=== PATIENT | male | born 1960 | race Caucasian/White ===

== ENCOUNTER 2016-11-20 20:10 | Inpatient (IN) | payer SELFPAY ==
--- NOTE | ~2016-11-20 | CN ---
Consultation Report [facility] [address] [place]. [address] NAME: FLORENCIO ONOFRE : 58 STATUS : ADM IN PAT#: [id number] AGE: 56 ADM/REG DATE : 11/20/16 MR#: [id number] REPORT SERV DATE: 11/30/16 DICTATED BY: TEAGAN GIRALDO DATE: 11/30/16 REPORT STATUS : Draft TRANSCRIBED BY: MODL DATE: 11/30/16 CONSULT NOTE DATE OF CONSULTATION: 11/30/2016 REASON FOR THE CONSULT: Abdominal pain. CONSULTING SERVICE: General Surgery. HISTORY OF PRESENT ILLNESS: This is a 56-year-old male who was admitted on 11/20/2016, with an NSTEMI, who is now postop day 4 after revascularization with a redo three-vessel CABG with reverse saphenous vein graft. The patient also has significant risk factors including COPD, previously uncontrolled type 2 diabetes mellitus this required high amounts of insulin here in the hospital, which was previously weaned off an insulin drip, dyslipidemia, and tobacco abuse prior to this admission. The patient was doing fairly well postop. He initially complained of some abdominal pain two days ago, which was relieved with a large bowel movement after he was administered a suppository and other bowel regimen medications. He denies that this was bloody. He states that he had a small hard bowel movement yesterday again, no blood. He says he woke up coughing this morning at 2 a.m. and had sudden onset of severe left-sided abdominal pain. He is also complaining of difficulty with having deep breaths secondary to this abdominal pain as well as complaining of left flank pain and some CVA tenderness. He states he is urinating well, and this is somewhat dark but he has not noticed any blood, and he denies any nausea. On entry into the room, the patient was eating a meal although he says that he does not have much of an appetite. PAST MEDICAL HISTORY: 1. Coronary artery disease status post initial bypass grafting with a COOLEY graft in 2005, as well as a prior drug-eluting stent, now postop day 4 from a redo three-vessel CABG with reverse saphenous vein grafting. 2. Hypertension. 3. Insulin-dependent diabetes mellitus. 4. Dyslipidemia. 5. GERD. 6. Tobacco abuse. 7. Obstructive sleep apnea noncompliant with CPAP, with COPD like factors. FAMILY HISTORY: 1. Coronary artery disease. 2. Psoriasis. PAST SURGICAL HISTORY: 1. Prior PCI with possible bare-metal stenting in 2005, probably previous coronary arteriograms at this admission as well as 2010, 2013. 2. Previous drug-eluting stent in 2013. Consultation Report [facility] [id number] [place]. [address] NAME: FLORENCIO ONOFRE : 58 STATUS : ADM IN [facility]#: [id number] AGE: 56 ADM/REG DATE : 11/20/16 MR#: [id number] REPORT SERV DATE: 11/30/16 DICTATED BY: TEAGAN GIRALDO SHIRA DATE: 11/30/16 REPORT STATUS : Draft TRANSCRIBED BY: KODI DATE: 11/30/16 3. Prior coronary artery bypass grafting in 2006, with 4 grafts including a COOLEY. 4. Postop day 4 now from redo coronary artery bypass grafting with 3 grafts. 5. Rotator cuff repair of the right shoulder in 1999. 6. Open cholecystectomy 1987. MEDICATIONS: Here in the hospital currently include: 1. MiraLAX. 2. Colace. 3. Dulera. 4. Nicotine patch. 5. NovoLog. 6. Levemir. 7. Lopressor. 8. Protonix. 9. Glucagon. 10.Glucose tablets p.r.n. 11.Dulcolax. 12.Phosphorus and potassium replacements and magnesium replacements. 13.Ambien. 14.Plavix. 15.Orazinc. 16.Halfprin. 17.Neurontin. 18.DuoNeb. 19.Roxicodone. 20.Lipitor. 21.Proventil. 22.Vitamin C. 23.Milk of magnesia. 24.Senokot. 25.Catapres p.r.n. 26.Mylanta p.r.n. 27.Zofran p.r.n. 28.Toradol p.o. 29.Cordarone. ALLERGIES: NO KNOWN DRUG ALLERGIES. SOCIAL HISTORY: The patient is and lives with his . He has heretofore smoked 1 pack a day for over 30 years. He has a previous history of occasionally smoking marijuana although denies any recent marijuana use. 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 FAMILY HISTORY: Significant for coronary artery disease and diabetes in his mother as well as one brother with coronary artery disease. Consultation Report [facility] [id number] [place]. [address] NAME: FLORENCIO ONOFRE : 58 STATUS : ADM IN PAT#: [id number] AGE: 56 ADM/REG DATE : 11/20/16 MR#: [id number] REPORT SERV DATE: 11/30/16 DICTATED BY: TEAGAN GIRALDO DATE: 11/30/16 REPORT STATUS : Draft TRANSCRIBED BY: KODI DATE: 11/30/16 PHYSICAL EXAMINATION: VITAL SIGNS: Temperature 97.0, heart rate is currently 92. The patient was mildly tachycardic in the low 100s approximately 36 hours ago, but this has since resolved. Blood pressure 135/81, saturating 94% on 3 L nasal cannula. This is stable for the past several days. GENERAL: No acute distress. Alert and orient x3. HEENT: Normocephalic, atraumatic. Pupils equal, round, reactive to light. Extraocular movements and cranial nerves 2 through 12 are grossly intact. His nares are patent. His mucous membranes are moist. There are no obvious obstruction of his oropharynx. NECK: Supple. Trachea is midline. CARDIOVASCULAR: Regular rate and rhythm. No murmurs, rubs, or gallops. LUNGS: In general clear bilaterally although somewhat decreased at the bases. He does have on his chest a central midline sternotomy scar, which is healing well. ABDOMEN: Soft. There is very mild distention. He is tender palpation on the left with a greater in the left upper quadrant versus the left lower quadrant. He has had focal rebound on this left side. It is worse on the left upper quadrant. He does not have generalized peritonitis and I do not appreciate any masses pulsatile or otherwise. There does appear to be a scar from prior cholecystectomy. LABS: White blood cells today 17.8, but this is trending down from previous values of 20.1 and 26.1, hemoglobin 12.6, hematocrit 37.4, platelets of 221, and 64.47% neutrophils. Sodium 136, potassium 3.9, chloride 95, CO2 of 30, BUN 28, creatinine 1.19, glucose is 139, calcium 8.7, magnesium 1.9. IMAGING: An x-ray from this morning shows what slightly increased left lower lobe consolidation versus atelectasis. Otherwise, no obvious abnormalities or changes from prior x-rays. ASSESSMENT AND PLAN: A 56-year-old male with multiple comorbidities including cardiovascular disease, type 2 diabetes mellitus, chronic obstructive pulmonary disease now with acute abdominal pain of unknown etiology. I have made the patient n.p.o., asked him not to drink or eat anything further until the Surgery is able to further review his imaging. Also ordered a stat CT of his abdomen and pelvis, further recommendations will be forthcoming following results of the CT. I have discussed this patient with Dr. Giraldo, who agrees with this plan. DICTATED BY: Melinda Yates MD SE/KODI Teagan Giraldo MD Consultation Report [address] [address] NAME: FLORENCIO ONOFRE : 58 STATUS : ADM IN PAT#: [id number] AGE: 56 ADM/REG DATE : 11/20/16 MR#: [id number] REPORT SERV DATE: 11/30/16 DICTATED BY: TEAGAN GIRALDO SHIRA DATE: 11/30/16 REPORT STATUS : Draft TRANSCRIBED BY: KODI DATE: 11/30/16 / [id number] CC: Saba Cardoza MD James Zellner, M.D.
--- NOTE | ~2016-11-20 | CN ---
Consultation Report [facility] [address] [place]. [address] NAME: FLORENCIO ONOFRE : 58 STATUS : ADM IN [facility]#: [id number] AGE: 56 ADM/REG DATE : 11/20/16 MR#: [id number] REPORT SERV DATE: 12/01/16 DICTATED BY: SAMY CAMPBELL DATE: 12/01/16 REPORT STATUS : Draft TRANSCRIBED BY: MODL DATE: 12/01/16 GI CONSULTATION DATE OF CONSULTATION: 12/01/2016 REASON FOR CONSULTATION: Regarding left lower quadrant pain. HISTORY OF PRESENT ILLNESS: This is a 56-year-old man who was admitted on 11/20/2016 with a efa-DM-[place]. He is now postoperative from redo 3-vessel CABG. He has developed left lower quadrant pain over the past three days. CT scan did show thickening of descending and sigmoid colon. He has had no diarrhea, melena, or hematochezia. His pain is persistent and mild to moderate in nature. He has had no nausea or vomiting. No history of colonoscopy. He is on aspirin and Plavix after his recent operation. MEDICAL HISTORY: Remarkable for CAD, status post CABG in 2005, as well as recently in 2017; hypertension; diabetes; dyslipidemia; GERD; obstructive sleep apnea; psoriasis; previous coronary stenting although none within the past one year; rotator cuff repair; and open cholecystectomy. ALLERGIES: NONE. MEDICATIONS AT HOME: Aspirin, Plavix, Lopid, Nitrostat, simvastatin, cholesterol and diabetes medicines, blood pressure medicine, and hydrochlorothiazide. FAMILY HISTORY: Remarkable for colon polyps in multiple first-degree relatives. SOCIAL HISTORY: Does not use alcohol or tobacco significantly. REVIEW OF SYSTEMS: A complete review of systems was obtained and negative except that noted in the history of present illness. PHYSICAL EXAMINATION: VITAL SIGNS: He is afebrile. Temperature is 97.3, pulse 78, respirations 16, blood pressure 115/67. HEENT: Sclerae anicteric. Pharynx is pink without exudate. NECK: Supple without lymphadenopathy. LUNGS: Clear to auscultation bilaterally. HEART: Regular rate and rhythm. S1, S2 are heard without rubs or gallops. ABDOMEN: Diminished bowel sounds. Belly is soft and mildly distended. He is tender in the left lower quadrant without rebound or guarding. Overall, benign abdomen. EXTREMITIES: No pedal edema or rash. NEUROLOGIC: Alert and oriented without focal deficit. Muscle exam is nontender. Consultation Report [facility] [address] [place]. [address] NAME: FLORENCIO ONOFRE : 58 STATUS : ADM IN PAT#: [id number] AGE: 56 ADM/REG DATE : 11/20/16 MR#: [id number] REPORT SERV DATE: 12/01/16 DICTATED BY: SAMY CAMPBELL DATE: 12/01/16 REPORT STATUS : Draft TRANSCRIBED BY: MODL DATE: 12/01/16 DATA: White blood cell count is 16.0 from 26.1, hematocrit is 34.3, and platelets 245. BUN is [address] scan shows thickening of descending and sigmoid colon with induration of the wall. IMPRESSION: 1. Left lower quadrant pain, suspect ischemic colitis. 2. Coronary artery disease, status post recent CABG as above. RECOMMENDATIONS: 1. Continue intravenous antibiotics. 2. Slow preparation for colonoscopy to follow in a couple of days. 3. Monitor CBC. 4. Would like to hold Plavix if okay with surgery. We will touch base. CC/KODI Samy Campbell M.D. / [id number] CC: Saba Cardoza MD
--- NOTE | ~2016-11-20 | EGD ---
EGD REPORT [facility] [address] [address] NAME: PARVIZ RAO : 58 STATUS : ADM IN PAT#: [id number] AGE: 56 ADM/REG DATE : 11/20/16 MR#: [id number] REPORT SERV DATE: 12/03/16 DICTATED BY: MICHAEL AGUILAR DATE: 12/03/16 REPORT STATUS : Draft [facility]ANSCRIBED BY: [facility] DATE: 12/03/16 Endoscopy Center Patient Name: Parviz Rao Date of : 1960 Attending MD: MICHAEL AGUILAR MD Procedure Date No Time: 12/03/2016 Procedure: Colonoscopy Indications: Abdominal pain in the left lower quadrant, Abnormal CT of the GI tract Medicines: Monitored Anesthesia Care Complications: No immediate complications. Estimated blood loss: Minimal. Procedure: Pre-Anesthesia Assessment: - ASA Grade Assessment: III - A patient with severe systemic disease. After I obtained informed consent, the scope was passed under direct vision. Throughout the procedure, the patient's blood pressure, pulse, and oxygen saturations were monitored continuously. The CF [id number] was introduced through the anus and advanced to the cecum, identified by appendiceal orifice and ileocecal valve. The colonoscopy was performed without difficulty. The patient tolerated the procedure well. The quality of the bowel preparation was fair. Findings: The perianal and digital rectal examinations were normal. Pertinent negatives include no palpable rectal lesions. A sessile, non-bleeding polyp was found in the ascending colon. The polyp was 5 mm in size. Polypectomy was not attempted due to the patient taking anticoagulation medication. Discontinuous linear areas of nonbleeding ulcerated mucosa were present in the ascending colon. Biopsies were taken with a cold forceps for histology. Estimated blood loss was minimal. Diffuse mild inflammation characterized by congestion (edema) and erythema was found in the sigmoid colon only. Biopsies were taken with a cold forceps for histology. Estimated blood loss was minimal. Non-bleeding internal hemorrhoids were found during retroflexion and were medium-sized. The exam was otherwise without abnormality. Impression: - Single polyp in ascending colon - not resected due to ASA and Plavix use - Mucosal ulceration. Biopsied. - Diffuse mild inflammation was found in the sigmoid EGD REPORT [address] [place]. [address] NAME: PARVIZ RAO : 58 STATUS : ADM IN [facility]#: [id number] AGE: 56 ADM/REG DATE : 11/20/16 MR#: [id number] REPORT SERV DATE: 12/03/16 DICTATED BY: MICHAEL AGUILAR DATE: 12/03/16 REPORT STATUS : Draft TRANSCRIBED BY: [facility] DATE: 12/03/16 colon. Biopsied. - Non-bleeding internal hemorrhoids. - The examination was otherwise normal. Recommendation: - Return patient to hospital [facility] for ongoing care. - Full liquid diet. - Await pathology results. - Use broad spectrum antibiotics for 10 days. - Repeat colonoscopy in 6 months for retreatment/remove polyps when Plavix can be held for 7-10 days. Procedure Code(s): --- Professional --- 73770, Colonoscopy, flexible, proximal to splenic flexure; with biopsy, single or multiple Diagnosis Code(s): --- Professional --- K63.3, Ulcer of intestine K52.9, Noninfective gastroenteritis and colitis, unspecified K64.8, Other hemorrhoids R10.32, Left lower quadrant pain R93.3, Abnormal findings on diagnostic imaging of other parts of digestive tract CPT copyright 2013 [employer]. All rights reserved. The codes documented in this report are preliminary and upon information coder review may be revised to meet current compliance requirements. Michael Aguilar MD MICHAEL AGUILAR MD 12/03/2016 11:18 AM This report has been signed electronically. Number of Addenda: 0 Note Initiated On: 12/03/2016 10:24 AM Scope Withdrawal Time 0 hours 9 minutes 16 seconds [address] [place] [id number]
--- NOTE | ~2016-11-20 | CN ---
Consultation Report [facility] [address] [place]. [address] NAME: FLORENCIO RAO : 58 STATUS : ADM IN [facility]#: [id number] AGE: 56 ADM/REG DATE : 11/20/16 MR#: [id number] REPORT SERV DATE: 11/29/16 DICTATED BY: ARNULFO MARCANO DATE: 11/29/16 REPORT STATUS : Draft TRANSCRIBED BY: MODL DATE: 11/29/16 DATE OF CONSULTATION: 11/29/2016 REASON FOR CONSULTATION: Need to help with bronchodilator therapy along with COPD. CHIEF COMPLAINT: The patient has no pulmonary complaints at this moment in time. HISTORY OF PRESENT ILLNESS: Mr. Rao is a 56-year-old gentleman, who is admitted for a non ST-elevation HI in almost two weeks ago and is now status post CABG. The patient has a chronic cough and sputum production. He is a known tobacco user and has had a hard time coming off cigarettes. Currently, he is on the patch and states that this is actually working well for him. The patient was accompanied with his family. We reviewed his CT scan, which shows mostly chronic bronchitis and not necessarily any emphysema. The patient is bringing up sputum. He is using a flutter valve and this seems to be helping him. He does not feel that the incentive spirometer is helping him much, however. The patient currently has no pneumonia-like symptoms. Prior to his hospitalization, the patient was not on any longstanding inhalers. PAST MEDICAL HISTORY: Coronary artery disease status post bypass, hypertension, diabetes, tobacco use, obstructive sleep apnea, psoriasis, hyperlipidemia. CURRENT MEDICATIONS: Reviewed. The patient is on multitude of cardiac medications. Pulmonary medications include DuoNeb, Dulera. ALLERGIES: NO KNOWN DRUG ALLERGIES. FAMILY HISTORY: Other family members with underlying coronary artery disease. SOCIAL HISTORY: The patient is currently . He has multiple brothers and sisters at the bedside. The patient has been a lifelong smoker. No alcohol or illicit drug use. He works as a sculptor with woodworking as a career and protects his airways with a fan to make sure he does not have any inhalation of wood dust. REVIEW OF SYSTEMS: All pertinent review of systems were reviewed and is otherwise negative. PHYSICAL EXAMINATION: VITAL SIGNS: The patient is currently afebrile, heart rate around 90-110, respiratory rate 16-18, current oxygen saturation 93% on 4 L nasal cannula, and blood pressure currently around 100 systolic to 120. GENERAL: The patient is alert and oriented, in no acute distress. HEENT: No JVD. No lymphadenopathy. PULMONARY: No wheezing. Distant breath sounds bilaterally. CARDIAC: Distant heart sounds, but otherwise some tachycardia, but no murmurs. ABDOMEN: Soft, nontender, nondistended. Consultation Report [address] [place]. [address] NAME: FLORENCIO RAO : 58 STATUS : ADM IN PAT#: [id number] AGE: 56 ADM/REG DATE : 11/20/16 MR#: [id number] REPORT SERV DATE: 11/29/16 DICTATED BY: ARNULFO MARCANO DATE: 11/29/16 REPORT STATUS : Draft TRANSCRIBED BY: KODI DATE: 11/29/16 EXTREMITY: No lower extremity edema, peripheral pulses noted, no focal neurological deficits. LABORATORY EXAMINATION: Leukocytosis is noted. Acute kidney dysfunction today. IMAGING DATA: CT scan was noted, which shows no emphysema, but does show bronchial wall thickening. ASSESSMENT AND PLAN: Mr. Rao is a 56-year-old gentleman, which is status post a redo sternotomy, who comes in with a history of smoking and probable chronic bronchitis-chronic obstructive pulmonary disease. I have no pulmonary function test on file and he does not follow up with pulmonary as of yet. Blood gases did not show acute hypercapnia; however, the patient was on mechanical ventilation at the time. RECOMMENDATIONS: 1. Immediate cessation of tobacco products. This has been explained to the patient and family at the bedside. We talked about strategies for payment of nicotine patches as this seems to be working for the patient. This will be the greatest improvement that I can offer him in his tobacco cessation at this moment in time. 2. Bronchodilator therapy with Dulera and DuoNeb therapy. Continue flutter valve therapy. 3. Follow up with Pulmonary as an outpatient. Thank you very much for this consultation. We will continue to follow along with you. Please call us with any further questions or concerns. HFQ/MODL Arnulfo Marcano MD / [id number] CC: Saba Cardoza MD
--- NOTE | ~2016-11-20 | OP ---
Record Of [facility] [address] [place]. [address] NAME: FLORENCIO ONOFRE : 58 STATUS : DIS IN PAT#: [id number] AGE: 56 ADM/REG DATE : 11/20/16 MR#: [id number] REPORT SERV DATE: 12/25/16 DICTATED BY: CARROLL MILLER DATE: 12/25/16 REPORT STATUS : Draft TRANSCRIBED BY: MODL DATE: 12/25/16 DATE OF PROCEDURE: 11/22/2016 PREOPERATIVE DIAGNOSES: 1. Recurrent coronary disease with unstable angina and baw-IT-mrtmddjdk myocardial infarction. 2. Previous coronary bypass grafting with PCI and stenting of the coronaries. 3. Type 2 ugc-qfrdugs-gdricddil diabetes mellitus. 4. Hypertension. 5. Hyperlipidemia. 6. Psoriasis. 7. Obesity. 8. Tobacco abuse. POSTOPERATIVE DIAGNOSES: 1. Recurrent coronary disease with unstable angina and lhp-QE-gwzejxrwy myocardial infarction. 2. Previous coronary bypass grafting with PCI and stenting of the coronaries. 3. Type 2 ulk-aoanpxu-vjcweozmz diabetes mellitus. 4. Hypertension. 5. Hyperlipidemia. 6. Psoriasis. 7. Obesity. 8. Tobacco abuse. PROCEDURE PERFORMED: 1. Urgent redo coronary bypass grafting x3, reverse saphenous vein graft placed to the first diagonal, reverse saphenous vein graft placed to the first obtuse marginal, reverse saphenous vein graft placed to the posterolateral branch vessel. 2. Preservation of old SEAMUS graft to the LAD. 3. Endoscopic vein harvest, saphenous vein from the right leg. 4. Transesophageal echocardiography. SURGEON: Dr. Carroll Miller. KEY PUNCH TEACHER: Denver Sanchez, Loulou Pritchett, and Marilee Downs. ANESTHESIA: General with Dr. Harmon. MATERIAL LIAISON: Dr. Medina. INDICATIONS: This is a 56-year-old gentleman, who underwent previous bypass surgery by us in 2010. This was a prior myocardial infarction. He was admitted to the hospital with recurrent chest pain and ruled in for myocardial infarction. It was felt to be non-STEMI. He then underwent a cardiac catheterization, showing severe [place] 3-vessel coronary disease. Vein grafts placed at previous surgery were either occluded or stenotic. His SEAMUS Record Of [facility] [address] [place]. [address] NAME: FLORENCIO ONOFRENE : 58 STATUS : DIS IN PAT#: [id number] AGE: 56 ADM/REG DATE : 11/20/16 MR#: [id number] REPORT SERV DATE: 12/25/16 DICTATED BY: CARROLL MILLER DATE: 12/25/16 REPORT STATUS : Draft TRANSCRIBED BY: KODI DATE: 12/25/16 graft to the LAD was widely patent. Unfortunately the patient is diabetic and continued to smoke throughout this time. Ventricular function was mildly reduced with an ejection fraction of 45%. We were asked to see the patient for possible urgent revascularization. Vein mapping of the leg along with CT scan performed demonstrating no contraindication to surgery. After discussion of the operations, indication, and risks, they wished to proceed. Preoperative STS predicted mortality was 2% and morbidity mortality 17.7%. This was shared with the patient. In addition, in-depth discussion with the patient of being medically compliant with giving up cigarettes was also carried out which the patient did agree to. FINDINGS AT OPERATION: 1. Cross-clamp time of 64 minutes. Total pump time 90 minutes. 2. The first diagonal vessel was 1.5 mm and mildly diseased. A 4 mm RSVG was anastomosed to it with fair runoff. This was a small target. 3. The first obtuse marginal was 1.5 mm and moderately diseased. A 4 mm RSVG was anastomosed to it with fair runoff. This was also a small target. 4. The posterolateral branch vessel was 1.75 mm and moderately diseased. A 4 mm RSVG was anastomosed to it with good runoff. 5. We preserved the old SEAMUS graft to the LAD and had excellent Doppler signal both during and after the operation. 6. The vein quality was good and all grafts had good Doppler signal at the end of the case. 7. SUNDAR demonstrated good ventricular function. There was mild or moderate mitral insufficiency. We discussed these findings with Dr. Medina during the procedure. It was decided that this most likely represented ischemic mitral insufficiency which should improve with revascularization of the target areas. PATHOLOGIC SPECIMENS: None. DESCRIPTION OF PROCEDURE: The patient was brought to the operating suite where general anesthesia was induced. Airway secured with an endotracheal tube. Lines secured by Anesthesia and a Gill catheter was placed. The patient's chest, abdomen, groin, and legs were prepped with Hibiclens and ChloraPrep and draped with Ioban and sterile sheets. SUNDAR probe was placed by Anesthesia and examination of the area demonstrated the findings as discussed above. We did discuss the findings on the echo of clzp-ht-iuphdunf mitral insufficiency with Dr. Medina. Because this was felt to be a type 3B defect with relation to his ischemia and mitral insufficiency, it was not severe. It was elected to treat this using bypass technique. The saphenous vein was harvested from the right leg using endoscopic technique. Briefly, the vein was cut directly down upon through a 2 cm incision and placed to the medial aspect of the right knee. Then, using VasoView trocars, the vessel was dissected from the surrounding subcutaneous tissue and fat. Side branches were identified, ligated, and divided with cautery. Once adequate length of the vein had been dissected, an incision was made up in the groin and in the lower leg where the vein was ligated, divided, and brought through the knee incision. The vein quality was good. The leg wounds were made hemostatic and closed in layers of absorbable suture. Skin closed in subcuticular fashion. Record Of Operation [facility] [address] [facility]. [address] NAME: FLORENCIO ONOFRE : 58 STATUS : DIS IN PAT#: [id number] AGE: 56 ADM/REG DATE : 11/20/16 MR#: [id number] REPORT SERV DATE: 12/25/16 DICTATED BY: CARROLL MILLER DATE: 12/25/16 REPORT STATUS : Draft TRANSCRIBED BY: KODI DATE: 12/25/16 Then, the sternal incision made through the old sternal scar. This carried through the subcutaneous tissue and the sternal wires were removed. Then, the sternum was opened carefully using the oscillating saw. We then spent some time clearing off the back table of the sternum away from epicardial and mediastinal adhesions. Retractor could eventually be placed. We then focused our dissection on the right side of the heart and ascending aorta concentrating on areas for cannulation. Once the right atrium and ascending aorta were cleared, the patient was anticoagulated with heparin. The previously placed grafts were identified and avoided. Then pursestring sutures were placed in the ascending aorta and right atrium. Cannulation was carried out in a routine manner. Eventually a retrograde cardioplegia cannula was placed in the coronary sinus. When all was in readiness, the patient was placed on the cardiopulmonary bypass. We continued our dissection circumferentially around the heart, freeing it up from adhesions. The SEAMUS was dissected and identified using Doppler. Thus the SEAMUS pedicle was then dissected away from adhesions around the lung tissue and the epicardial surface. Once adequate length of the SEAMUS freed up, we were able to jigar out the distal targets on the heart as described in the findings. Then, a heart support was placed. The aorta was crossclamped and an initial dose cold blood cardioplegia solution was given in a combination of antegrade and retrograde fashion, then a retrograde manner following proximal anastomoses. Following the first dose of cardioplegia, the heart was positioned for the posterolateral branch graft. Arteriotomy was made. The vein graft was then anastomosed to it with 7-0 Prolene. The vein graft was measured back to the right side of the ascending aorta where it was divided. We then positioned the heart for the obtuse marginal graft. Another arteriotomy was made and the vein graft was then anastomosed it with 7-0 Prolene. This vein graft was then measured back to the left side of the ascending aorta where it was divided. Next, the proximal ends of the two vein grafts were anastomosed where 4 mm punch aortotomies were in the schulz of the old vein grafts. They were non-diseased on the aorta. The proximal anastomosis was performed with 6-0 Prolene. Another dose of cardioplegia was given and we positioned the heart for the diagonal graft. It should be noted that once the cross-clamp was originally applied, a bulldog clamp was placed on the SEAMUS pedicle. Arteriotomy was made in the first diagonal vessel. The vein graft was then anastomosed to it with 7-0 Prolene. The vein graft was measured back to the left side of the ascending aorta where it was divided and anastomosed to a 4 mm punch aortotomy with 6-0 Prolene. The patient was placed in Trendelenburg and final dose of warm blood cardioplegia was given in a retrograde fashion. Ventricular and atrial pacing wires were placed. A bulldog clamp on the SEAMUS pedicle was removed. Following the last dose of cardioplegia and deairing of the ascending aorta, the aortic cross-clamp was removed. The distal and proximal anastomoses were inspected and made hemostatic. Doppler demonstrated good flow through the grafts. The SEAMUS had excellent flow by Doppler. Ventilations were begun and the heart was paced in AV sequential fashion. When the heart demonstrated good contractility, it was allowed to fill and eject. De-airing was monitored with SUNDAR. When deairing was completed, the ascending aortic vent removed and these pursestring sutures tied and reinforced. Record Of Operation [facility] [address] [place]. [address] NAME: FLORENCIO ONOFRE : 58 STATUS : DIS IN PAT#: [id number] AGE: 56 ADM/REG DATE : 11/20/16 MR#: [id number] REPORT SERV DATE: 12/25/16 DICTATED BY: CARROLL MILLER DATE: 12/25/16 REPORT STATUS : Draft TRANSCRIBED BY: KODI DATE: 12/25/16 The patient was then weaned from cardiopulmonary bypass with inotropic support. The venous cannula was removed and these pursestring sutures tied. SUNDAR examination demonstrated good ventricular function. There was mild mitral valve insufficiency felt to be at the end of the operation. Protamine was then administered by Anesthesia and following a period of hemodynamic stability, the aortic cannula was removed and these pursestring sutures tied and reinforced. The patient continued to do well and chest irrigated copiously with saline. Meticulous hemostasis was obtained. Hemasorb was placed along the cut edge of the sternum. Once hemostasis was assured, the pericardium was draped over the anterior surface of the heart and tacked in position. Doppler demonstrated good flow through the grafts following protamine administration. Then, chest tubes were placed and the sternum reapproximated with 8 sternal wires. The clavipectoral fascia and linea alba closed with #1 StrataFix as was the subcutaneous tissue. The skin was closed in subcuticular fashion. The patient tolerated the procedure well. There were no complications. Sponge and needle counts were correct. DISPOSITION: The patient was left intubated, sedated, and transported to the Intensive Care in stable condition. MARCO A/KODI Carroll Miller M.D. / [id number] CC: Saba Cardoza MD Lisa Gail Carkner, M.D.
--- NOTE | ~2016-11-20 | DS ---
Discharge Summary [facility] [address] [place]. [address] NAME: FLORENCIO ONOFRE : 58 STATUS : DIS IN PAT#: [id number] AGE: 56 ADM/REG DATE : 11/20/16 MR#: [id number] REPORT SERV DATE: 12/13/16 DICTATED BY: DATE: REPORT STATUS : Draft TRANSCRIBED BY: MODL DATE: 12/13/16 Data Collection from hospitalization DISCHARGE DIAGNOSES: 1. Non-ST elevation myocardial infarction. 2. Coronary artery disease, status post redo coronary artery bypass grafting. 3. Hypertension. 4. Hyperlipidemia. 5. Type 2 diabetes mellitus. 6. Tobacco use. 7. Gastroesophageal reflux disease. 8. Obstructive sleep apnea. 9. Psoriasis. CONSULTATIONS: 1. Robin Diaz N.P. 2. Arnulfo Marcano MD. 3. Dimitrios Giraldo MD. 4. Samy Campbell M.D. 5. Ida Cook M.D. PROCEDURES PERFORMED: 1. Colonoscopy on 12/03/2016. 2. Cardiac catheterization on 11/21/2016. 3. Redo coronary artery bypass x3 using saphenous vein from the right leg, harvested endoscopically as graft, transesophageal echocardiogram on 11/26/2016. 4. Vein mapping of the bilateral lower extremities on 11/22/2016. 5. Carotid blood flow study on 11/22/2016. 6. CT scan of the chest without contrast on 11/22/2016. 7. CT scan of the abdomen and pelvis with contrast on 11/30/2016. 8. Mesenteric duplex study on 11/30/2016. 9. Pulmonary function study on 11/22/2016. PATHOLOGY: Ascending colon biopsy - ulcer, negative for malignancy, see comments. Sigmoid colon biopsy - within normal limits. MEDICATIONS: Aspirin 81 mg daily; Lipitor 40 mg at bedtime; Plavix 75 mg every morning; Neurontin 300 mg twice a day; Lopid 600 mg twice a day; Novolin 70/30, 15 units subcutaneously every morning; Novolin 70/30, 10 units subcutaneously every evening; Levaquin 750 mg daily; Lopressor 50 mg twice a day; Flagyl 500 mg every eight hours; Nitrostat 0.4 mg sublingually as needed; Ultram 50 mg every four hours as needed; and Anoro Ellipta one inhalation daily as instructed. He was instructed not to continue isosorbide mononitrate, glimepiride, metformin, simvastatin, hydrochlorothiazide, or lisinopril. CONDITION AT DISCHARGE: Stable. DISPOSITION: The patient was discharged home on a low-cholesterol, low-sodium, 1800-calorie cardiac/diabetic diet with activities as instructed. He would follow up with Robin Diaz Discharge Summary [address] [address] NAME: FLORENCIO ONOFRE : 58 STATUS : DIS IN PAT#: [id number] AGE: 56 ADM/REG DATE : 11/20/16 MR#: [id number] REPORT SERV DATE: 12/13/16 DICTATED BY: DATE: REPORT STATUS : Draft TRANSCRIBED BY: KODI DATE: 12/13/16 as instructed. He would follow up with Dr. Leah Ni as instructed. He would follow up with Dr. Arnulfo Marcano on 02/05/2017. He was to undergo a repeat colonoscopy in 6 to 12 months following discharge when he was stable to stop Plavix for 7 to 10 days. HOSPITAL COURSE: This is a 56-year-old man who has a history of coronary artery disease. He is status post myocardial infarction and stents. He had a coronary artery bypass grafting in 2005 and his most recent percutaneous coronary intervention was in 2013 for a saphenous vein graft to diagonal branch here at [facility]. He stated that his chest pain started and had been going on for several weeks. He said that he had been eating nitroglycerin for several weeks. He began having chest pain that he rated a 12/10 on the day prior to this admission. It was not relieved with nitroglycerin and he presented to the emergency department. He said that it was better with nitroglycerin and was worse with movement. It radiated to his left arm, jaw, and neck. It was associated with nausea. He also felt chills and clammy. EKG revealed sinus rhythm with T-wave inversions in the lateral leads consistent with possible lateral ischemia. Chest x-ray demonstrated post CABG changes. There was no evidence of acute cardiopulmonary disease. He was felt to have had a non-ST elevation myocardial infarction. He was admitted to the hospital at this time for further evaluation and treatment. Upon admission, troponin was 0.52 to 0.93. White count was 15.5. INR level was 1.1. Lifestyle modification was strongly recommended and he was encouraged to stop smoking. It was felt that he should undergo a cardiac catheterization. Metformin was going to be held, pending the cardiac catheterization. Aspirin, statin, and metoprolol were continued. An echocardiogram was going to be checked. He was taken to the cardiac laboratory animal caretaker where he underwent the above-mentioned procedure by Dr. Delbert Rojas. He tolerated this well, and there were no complications. Postoperatively, the patient was seen by Robin Diaz. Coronary arteriogram had demonstrated progression of his coronary artery disease with [place] disease that was flow limiting in the right coronary artery, left anterior descending, and diagonal branches. He has in-stent restenosis in the diagonal stent. He had disease in the vein graft going to the circumflex. Left ventricular function was mildly diminished with ejection fraction of 45%. It was felt that the patient would need to undergo redo sternotomy and coronary artery bypass grafting. The patient says that he had smoked up until the time of admission. He says that he usually smokes about a pack a day and has smoked for over 30 years. He tells me that he had been on Plavix and his last dose of Plavix was on the day prior to admission. Chest x-ray did not show any acute cardiopulmonary abnormalities. We discussed lifestyle changes including smoking cessation and better control of his diabetes. The following day, he underwent vein mapping of the bilateral lower extremities as well as a carotid blood flow study and CT scan of the chest without contrast. Pulmonary function studies were performed. He had some chest pain overnight. Nitroglycerin was increased. He said he was feeling better. Aspirin, atorvastatin, metoprolol, and isosorbide were continued. Low-dose KYRIE inhibitor was added. Echocardiogram was also performed. On 11/23/2016, he did have some chest pain early that morning. It was relieved with nitroglycerin and morphine sulfate. That evening, he had severe chest pain overnight. Heparin and aspirin were continued. Cardiac enzymes were checked. His blood pressure was stable. He was now off nitroglycerin. Xanax was increased and he had a decrease in his chest pain episodes. On 11/26/2016, he was taken to the operating room where he underwent the above-mentioned procedure by Dr. Aknit Miller. He Discharge Summary [address] [place]. [address] NAME: FLORENCIO ONOFRE : 58 STATUS : DIS IN PAT#: [id number] AGE: 56 ADM/REG DATE : 11/20/16 MR#: [id number] REPORT SERV DATE: 12/13/16 DICTATED BY: DATE: REPORT STATUS : Draft TRANSCRIBED BY: MODL DATE: 12/13/16 tolerated this well, and there were no complications. On postop day #1, he did complain of pain despite not breathing deeply. He had decreased breath sounds. He had bronchial breath sounds in the left base. His O2 needs remained elevated. He had no edema. We encouraged him to use incentive spirometry. He was being watched in the ICU. White blood cell count was 26.9, this was felt secondary to intraoperative steroids. He was in a normal sinus rhythm. He said he felt better after the chest tube was removed. A dose of IV Lasix was given. On 11/28/2016, he was in sinus tachycardia. He did complain of pain. Chest x-ray showed increased basilar atelectasis. He needed extensive coaching to get up and deep breathing. Pacing wires were removed. Morphine was stopped. Toradol was added. Repeat dose of Lasix was given. Potassium and magnesium supplementation would be given if needed. Hemoglobin A1c was 8.1. The patient was seen by Dr. Ida Cook. The patient does have a history of diabetes mellitus. He was still requiring large amounts of insulin. He was eating better. Transition orders were going to began. It was felt that he would need diabetes education. On 11/29/2016, he did have a bowel movement. He said he was feeling better. He had no edema. Long-acting subcutaneous insulin was going to be added. Nicotine replacement was being provided. He said he had a good night. White count was 20.1. His incisions looked okay. He underwent diabetes education. We were going to hold additional diuresis. Aspirin, atorvastatin, clopidogrel, and metoprolol were continued. The next day, he did complain of some left lower abdominal pain. He had difficulty taking a deep breath. White count was now 17.8. Low-dose Toradol was added. MiraLAX was added to his regimen. He was seen by Dr. Arnulfo Marcano to help with bronchodilator therapy along with COPD. The patient had no pulmonary complaints at this moment in time. He did not feel like his incentive spirometer was helping him much. He was using a flutter valve and this seemed to be helping. He was encouraged to immediately stop smoking. This was also explained to his family at the bedside. The strategies for payment of nicotine patches were discussed, this would be the greatest improvement that he could offer the patient at this time. Bronchodilator therapy with Dulera and DuoNeb therapy would be provided. Flutter valve therapy was continued. He was to follow up with Pulmonary as an outpatient. He was also seen by Dr. Dimitrios Giraldo regarding his abdominal pain. The patient said he had a small hard bowel movement the day prior to this consult, but no blood was seen. He said that he woke up coughing around 2:00 a.m. and had the sudden onset of severe left-sided abdominal pain. He also complained of difficulty taking deep breath secondary to his abdominal pain. He also complained of left flank pain and some CVA tenderness. He said he was urinating well, but it was somewhat dark. He had not noticed any blood and he denied any nausea. He said he did not have much of an appetite. White blood cell count was 17.8. Creatinine was 1.19. X-ray showed slightly increased left lower lobe consolidation versus atelectasis, otherwise, no obvious abnormalities or change from prior x-rays. The patient was made n.p.o. He was asked not to eat or drink anything further until we were able to further review his imaging. A stat CT scan of the abdomen and pelvis was requested. A mesenteric duplex study was performed as well as a CT scan of the abdomen and pelvis with contrast. Pulmonary function studies were also performed. stool studies were ordered. Levemir was continued. His insulin was stopped. On 12/01/2016, he was in a normal sinus rhythm. His sternum was stable. White count was now 16. He was felt to have ischemic colitis. He was seen by Dr. Samy Campbell regarding Discharge Summary [address] [place]. [address] NAME: FLORENCIO ONOFRE : 58 STATUS : DIS IN [facility]#: [id number] AGE: 56 ADM/REG DATE : 11/20/16 MR#: [id number] REPORT SERV DATE: 12/13/16 DICTATED BY: DATE: REPORT STATUS : Draft TRANSCRIBED BY: MODL DATE: 12/13/16 the left lower quadrant pain. His CT scan did show thickening of the descending and sigmoid colon. He had no diarrhea, melena, or hematochezia. His pain was persistent and mild-to- moderate in nature. He had no nausea or vomiting. He has no history of colonoscopy. He was on aspirin and Plavix after his recent operation. Creatinine level was 1.04. Intravenous antibiotics were continued. He recommended slow preparation for colonoscopy. If it is okay with Surgery, Plavix would be held. The following day, he still had some pain, but it had improved. He remained in a normal sinus rhythm. Plans were being made for a colonoscopy to be performed. Levemir was continued. His mesenteric duplex study had shown increased velocity consistent with stenosis at the origin of the SEAMUS, this most certainly may cause ischemia of the distal descending colon. He did have a bowel movement. Discharge planning was performed. On 12/03/2016, he was taken to the endoscopic suite where he underwent the above-mentioned procedure by Dr. Michael Holley. He tolerated this well, and there were no complications. There was a single polyp in the ascending colon that was not resected due to aspirin and Plavix use. He had mucosal ulceration, which was biopsied. There was diffuse mild inflammation found in the sigmoid colon, which was biopsied. There were nonbleeding internal hemorrhoids. The patient said he felt well. He had no chest pain, shortness of breath, or GI symptoms. He was alert and cooperative. Antibiotics were continued. Discharge instructions were given. Due to his improved and stable condition, he was discharged home with the above-stated instructions. Information collected by: Tamy Gupta I submit the above information as my discharge summary. PHIL/KODI Emmanuelle Medina M.D. / [id number] CC: Saba Cardoza MD Wesley Giles, MD Michael S. Loga N.P. Samy Charapata, M.D.
--- NOTE | ~2016-11-20 | CN ---
Consultation Report [facility] [address] [place]. [address] NAME: FLORENCIO ONOFRE : 58 STATUS : ADM Mark PAT#: [id number] AGE: 56 ADM/REG DATE : 11/20/16 MR#: [id number] REPORT SERV DATE: 11/21/16 DICTATED BY: ROBIN SHELL DATE: 11/21/16 REPORT STATUS : Draft TRANSCRIBED BY: MODL DATE: 11/21/16 CONSULTATION NOTE DATE OF CONSULTATION: 11/21/2016 REFERRING PHYSICIAN: Delbert Rojas MD ATTENDING PHYSICIAN: Emmanuelle Medina MD CHIEF COMPLAINT: "I had chest pain." HISTORY OF PRESENT ILLNESS: This is a 56-year-old gentleman with known coronary artery disease status post prior myocardial infarctions, prior PCI with stent placements and previous coronary artery bypass grafting by Dr. Bird in [place] in 2006. Apparently in 2010, he had myocardial infarction and was studied at [place], and at that time, did not have any stenting. He notes that he has had usually exertional chest discomfort since 19/08, although he did undergo drug-eluting stent of the diagonal in 2013. Recently he notes over the past several weeks significant chest pain that radiates up into his neck, jaw, and left shoulder and arm. This is usually relieved with nitroglycerin, does not usually last more than about 15 to 30 minutes. His pain has occurred at rest. He does not have any associated nausea, vomiting, or diaphoresis. He does have associated shortness of breath. No palpitations. No syncope or near syncope. On the , he had significant chest pain that was unrelieved and so he came to the emergency department on the . At that time, he had abnormal EKG and elevated troponin I and was hospitalized. 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 He has in-stent restenosis in the diagonal stent. He has disease in the vein graft going to the circumflex. His left ventricular function was mildly diminished with ejection fraction 45%. We were asked to see for possible redo sternotomy and coronary artery bypass grafting. The patient tells me he has smoked up until the time of admission, and usually smokes about a pack per day and has smoked for over 30 years. He tells me he has been on Plavix, his last dose of Plavix was yesterday. PRIOR MEDICAL HISTORY: 1. Coronary artery disease, status post prior stenting. 2. Prior myocardial infarctions. 3. Hypertension. 4. Type 2 insulin-dependent diabetes mellitus, stopped his insulin about a year ago. 5. Dyslipidemia/hypertriglyceridemia. 6. Gastroesophageal reflux disease. 7. Tobacco abuse. 8. Obstructive sleep apnea, does not use CPAP. Consultation Report [address] [place]. [address] NAME: FLORENCIO ONOFRE : 58 STATUS : ADM Mark PAT#: [id number] AGE: 56 ADM/REG DATE : 11/20/16 MR#: [id number] REPORT SERV DATE: 11/21/16 DICTATED BY: ROBIN SHELL DATE: 11/21/16 REPORT STATUS : Draft TRANSCRIBED BY: KODI DATE: 11/21/16 9. Psoriasis. 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 PRIOR SURGICAL HISTORY: Significant for: 1. Prior PCI and bare-metal stent on 07/18/2006. 2. Previous coronary arteriogram in 2010 and 2013. 3. Previous drug-eluting stent placement in 06/[address] Quiñones. 4. Prior coronary artery bypass grafting x4 in 2006 by Lidia Bird in [place]. 5. Previous rotator cuff repair right shoulder in 1999. 6. Cholecystectomy in 1987. ALLERGIES: NONE KNOWN. MEDICATIONS AT HOME: Include: Clopidogrel 75 mg p.o. q.a.m., Lopid 600 mg p.o. b.i.d., aspirin 325 mg p.o. q.a.m., nitroglycerin 0.4 mg sublingual p.r.n. chest pain, isosorbide 10 mg p.o. b.i.d., Amaryl 4 mg p.o. b.i.d., metformin 1000 mg p.o. b.i.d., simvastatin 20 mg p.o. at bedtime, hydrochlorothiazide 25 mg p.o. daily, gabapentin 300 mg p.o. b.i.d., metoprolol 150 mg p.o. b.i.d., lisinopril 20 mg p.o. daily. FAMILY HISTORY: Significant for coronary artery disease and diabetes in mother, one brother with coronary artery disease, does not know his father's history. SOCIAL HISTORY: He is , lives with his , smokes one pack of cigarettes per day. He has in the past occasionally smoked marijuana. He is currently unemployed. REVIEW OF SYSTEMS: GENERAL: Negative for any recent weight change, fevers, chills, or night sweats. He does report intentional weight loss over the past one year. SKIN, HAIR, AND NAILS: Significant for psoriasis and psoriatic lesions over his extremities and trunk. He has tattoos and denies any other lesions or masses. ENT: Negative for cataracts or glaucoma or diminished vision. He wears upper dentures. He denies any dizziness. Denies any ringing in his ears. Denies any problems eating, chewing, or swallowing. RESPIRATORY: Positive for daily cough, productive of sputum. Negative for hemoptysis. Occasional wheezing. CV: No palpitations. No history of abnormal heart rhythm. Positive for daily chest pain associated with shortness of breath. Negative for syncope or near syncope, nausea, vomiting, or lower extremity swelling or pain. GI: Positive for gastroesophageal reflux. Negative for bleeding in stool or vomiting blood. : Negative for hematuria or dysuria. Positive for frequency and nocturia. MUSCULOSKELETAL: Positive for chronic back pain. Negative for fractures. HEME/ONC: Positive for easy bruising and bleeding while on Plavix and aspirin. Negative for blood clots. ENDOCRINE: Positive for diabetes mellitus type 2, has quit taking insulin and reports blood sugars in the 300 to 400 range when he was checking them. He has neglected checking them Consultation Report [address] [address] NAME: FLORENCIO ONOFRE : 58 STATUS : ADM Mark PAT#: [id number] AGE: 56 ADM/REG DATE : 11/20/16 MR#: [id number] REPORT SERV DATE: 11/21/16 DICTATED BY: ROBIN SHELL DATE: 11/21/16 REPORT STATUS : Draft TRANSCRIBED BY: MODLeon DATE: 11/21/16 for about the past year since he quit insulin. Otherwise, negative or as above. PHYSICAL EXAMINATION: GENERAL: He is an affable elderly appearing white male, in no acute distress. His weight is given as 88.25 kg and his height 177.8 cm. VITAL SIGNS: Blood pressure 105/61; temperature 98; pulse 90 and regular; respirations 16, regular and unlabored; saturation 92% on room air. HEENT: Normocephalic, atraumatic. Pupils equal, round, and reactive to light and accommodation, sclerae clear, conjunctivae pink. Oral and buccal mucosa pink and moist and upper dentures are in place. Lower teeth are in reasonable condition. No oral or buccal lesions or masses. NECK: Supple. No restricted range of motion. No carotid bruits. No jugular venous distention. CHEST: He has wheezing in the left chest. No crackles. He has good air entry into both lungs to auscultation. No use of accessory muscles. No chest wall tenderness. No external deformity. CV: Regular rate and rhythm without murmur or rub. He has palpable symmetric central peripheral pulses. No clubbing, cyanosis, or edema. No lower extremity varicosities. ABDOMEN: Soft, nontender with normoactive bowel sounds. No hepatosplenomegaly. /RECTAL: Declined. MUSCULOSKELETAL: No kyphoscoliosis. No asymmetry. NEUROLOGIC: He is alert and oriented to day, date, place, and situation. Speech is clear, fluent. No focal deficits. No tremors. SKIN, HAIR, AND NAILS: Tattoos over extremities, psoriatic lesions over upper and lower extremities and trunk including the chest. There is a median sternotomy scar that is well healed. DATA: I reviewed his coronary arteriogram today as well as his EKG, echocardiogram from 2013. Current echo results and carotid ultrasound results are pending and will be reviewed when available. His labs were significant for elevated troponin I, initially of 0.52 increasing to 0.93. His lipid profile was abnormal with elevated triglycerides of 427, low HDL of 29. His BMP showed sodium 138, potassium 3.7, chloride 99, CO2 of 27, BUN 19, creatinine 1.06. CBC is abnormal with leukocytosis of 14.9, hemoglobin 15, hematocrit 43.9%, platelets 244,000. INR unremarkable at 1.1. Chest x-ray does not show any acute cardiopulmonary abnormalities. IMPRESSION: 1. Recent non-ST elevation myocardial infarction. 2. Progression of coronary artery disease in the mary's igloo vessels and stent and vein graft. 3. Type 2 diabetes mellitus, on oral antidiabetic medication. 4. Hypertension. Consultation Report [facility] [address] [place]. [address] NAME: FLORENCIO ONOFRE : 58 STATUS : ADM Mark PAT#: [id number] AGE: 56 ADM/REG DATE : 11/20/16 MR#: [id number] REPORT SERV DATE: 11/21/16 DICTATED BY: ROBIN SHELL DATE: 11/21/16 REPORT STATUS : Draft TRANSCRIBED BY: MODL DATE: 11/21/16 5. Tobacco abuse, likely chronic obstructive pulmonary disease. 6. Hyperlipidemia. 7. Psoriasis. 8. Prior cerebrovascular accident with residual weakness in left hand. PLAN: Discussed with the patient at length today. We talked about possible redo sternotomy and coronary artery bypass grafting, indications, benefits, and serious risks which include things like bleeding, need for blood or blood product transfusion and their attendant risks, damage to the kidneys, liver, or lungs; heart attack; stroke; abnormal heart rhythm, mediastinitis, and even . Using Society of Thor[employer] Surgeons database for prediction mortality risk was 7.325%, any morbidity or mortality of 33.093%. He indicates his understanding and is willing to proceed. We talked about lifestyle changes, including smoking cessation, and better control of his diabetes. In preparation for the surgery, would obtain the echo and carotid ultrasound as previously ordered, and in addition obtain bedside spirometry for baseline evaluation as well as CT of the chest given his age greater than 55 and greater than 30 pack year history of smoking. We will hold his Plavix, and his last dose was yesterday. We anticipate surgical revascularization at this admission, likely early next week. We appreciate the opportunity to participate in this gentleman's care. Sincerely, ALTAGRACIA/KODI Robin Shell, N.P. / [id number] CC: Saba Cardoza MD
--- NOTE | ~2016-11-20 | HP ---
History And Physical [facility] [address] [place]. [address] NAME: FLORENCIO RAO : 58 STATUS : ADM Mark PAT#: [id number] AGE: 56 ADM/REG DATE : 11/20/16 MR#: [id number] REPORT SERV DATE: 11/21/16 DICTATED BY: DATE: REPORT STATUS : Draft TRANSCRIBED BY: MODL DATE: 11/21/16 DATE OF ADMISSION: 11/20/2016 CHIEF COMPLAINT/REASON FOR ADMISSION: Non-ST elevation ND. HISTORY OF PRESENT ILLNESS: Mr. Rao is a 56-year-old gentleman with a known history of coronary artery disease, status post myocardial infarction and stents. He had coronary artery bypass grafting in 2005 at [place], [place], and his most recent PCI was in 2013 for a saphenous vein graft to diagonal branch here at [facility]. He stated that his chest pain started and has been going on for several weeks. He states that he has been eating nitroglycerin for several weeks, but nitroglycerin were previously resolved his pain. He began having chest pain of 12/10 yesterday started about 1:00 to 1:30 in the afternoon and when it was not relieved with nitroglycerin he presented to the emergency department for additional evaluation. He states that it is better with nitroglycerin, it is worse with movement, it radiated to his left arm, jaw, and neck and it was associated with nausea. He also felt chills and clammy. PAST MEDICAL HISTORY: 1. Coronary artery disease, status post coronary artery bypass grafting in 2005 and multiple PCI. 2. Hypertension. 3. Insulin-dependent diabetes mellitus. 4. Dyslipidemia. 5. Gastroesophageal reflux disease. 6. Tobacco abuse. 7. Obstructive sleep apnea, noncompliant with CPAP. 8. Family history of coronary artery disease. 9. Psoriasis. SOCIAL HISTORY: The patient is . He smokes a pack of cigarettes per day and has since he has been a teenager. He denies drinking or extracurricular drug use. ALLERGIES: NO KNOWN DRUG ALLERGIES. THE PATIENT HAS NO IDEA WHAT MEDICATIONS HE IS ON. PRIMARY CARE PROVIDER IS IN [place], [place], DR. HOLT. REVIEW OF SYSTEMS: All systems reviewed and is negative except for dictated in HPI. PHYSICAL EXAMINATION: VITAL SIGNS: Temperature is 97.9, blood pressure 113/77, pulse 82, respirations 18, oxygen saturation is 93% on room air. GENERAL: Mr. Rao is an ill-appearing, ill-groomed 56-year-old gentleman. He is currently in no acute distress. He looks much older than his stated age. History And Physical [address] [address] NAME: FLORENCIO RAO : 58 STATUS : ADM Mark PAT#: [id number] AGE: 56 ADM/REG DATE : 11/20/16 MR#: [id number] REPORT SERV DATE: 11/21/16 DICTATED BY: DATE: REPORT STATUS : Draft TRANSCRIBED BY: MODL DATE: 11/21/16 NECK: No jugular venous distention. No carotid bruits. HEART: Regular rate and rhythm. Normal S1, S2. I could not appreciate murmurs, rubs, or gallops. LUNGS: Diminished, but no wheezes, rales, or rhonchi were auscultated. ABDOMEN: Soft and nontender. The abdominal aorta is nonpalpable. EXTREMITIES: Warm and well perfused. There is no pitting edema. Femoral pulses +2 bilaterally. I could not appreciate femoral bruits. LABORATORY DATA: Laboratory results white blood cell count 15.5, hemoglobin of 15.5, hematocrit of 44.9, platelet count of 248. INR is 1.1. Sodium 138, potassium 3.7, BUN 19, creatinine 1, glucose is 150. Total cholesterol is 141, HDL 24, non-HDL cholesterol is 117, triglycerides are 427. Troponin 0.52 to 0.93. An EKG performed on admission documented sinus rhythm with T-wave inversions in the lateral leads consistent with a possible lateral ischemia. Chest x-ray demonstrates post CABG changes. No evidence of acute cardiopulmonary disease. IMPRESSION REPORT AND PLAN: 1. Non-ST elevation myocardial infarction. 2. Coronary artery disease, status post coronary artery bypass grafting and percutaneous coronary intervention in the past, most recently in 2013. 3. Diabetes mellitus. 4. Psoriasis. 5. Hypertension. 6. Tobacco abuse. 7. Hyperlipidemia. RECOMMENDATIONS: 1. I strongly recommended lifestyle modification and quit smoking. 2. I discussed the risks, benefits, and alternatives of the cardiac catheterization with the patient including heart attack, stroke, , kidney failure, irregular heart rhythms, need for emergency surgery, pain, bleeding, infection, he is agreeable to proceed at this time. He has no bleeding episodes, no surgery upcoming, would hold metformin, pending cardiac catheterization. 3. Continue aspirin, statin, and metoprolol. 4. Check echocardiogram. 5. Additional recommendations pending clinical course. WILLARD/KODI Emmanuelle Medina M.D. / [id number] History And Physical [address] [address] NAME: FLORENCIO RAO : 58 STATUS : ADM Mark PAT#: [id number] AGE: 56 ADM/REG DATE : 11/20/16 MR#: [id number] REPORT SERV DATE: 11/21/16 DICTATED BY: DATE: REPORT STATUS : Draft TRANSCRIBED BY: KODI DATE: 11/21/16 CC: Saba Cardoza MD
[~2016-11-20 20:10] MED LIST: AMARYL4 PO; ASABAYER PO; CLARIT10 PO; FISH-EPA1000 MG PO; GLUCOPHAGE1000 MG PO; HCTZ25B PO; LANTUS SC; LIPITOR20 PO; LOP50 PO; LOPID6 PO; METHOC500B PO; MONOKET PO; NEUR300 PO; NITROSTAT0.4 MG SL; PLAVIX PO; PRIN20 PO; ZANTAC150 MG PO
[2016-11-20 21:24] LABS: BASOPHILS 0.2 %; BASOPHILS ABSOLUTE 0.03 10/3/uL (0.0-0.16); EOSINOPHILS 2.3 %; EOSINOPHILS ABSOLUTE 0.34 10/3/uL (0.0-0.53); ER CBC TAT 0 Hrs 05 Mins; HEMATOCRIT 43.9 % (40.0-51.0); IMMATURE GRANULOCYTES 0.5 %; IMMATURE GRANULOCYTES ABSOLUTE 0.08 10/3/uL (0.0-0.11); LYMPHOCYTES 21.2 %; LYMPHOCYTES ABSOLUTE 3.15 10/3/uL (0.67-4.30); MANUAL DIFF NO %; MEAN CORPUS HGB CONC 34.2 g/dL (32.0-36.0); MEAN CORPUSCULAR HEMOGLOB 29.8 pg (26.0-34.0); MEAN CORPUSCULAR VOLUME 87.1 fL (80-100); MEAN PLATELET VOLUME 10.7 fL (9.2-13.0); MONOCYTES ABSOLUTE 1.19 10/3/uL (0.21-1.20); NEUTROPHILS 67.8 %; NEUTROPHILS ABSOLUTE 10.08 10/3/uL (2.02-8.40); PLATELET COUNT 244 10/3/uL (150-400); RED CELL COUNT 5.04 10/6/uL (4.7-6.1); WHITE BLOOD CELLS 14.9 10/3/uL (4.5-10.5)
[2016-11-20 21:31] LABS: INTERNATIONAL NORMAL RATI 1.1 UNITS (-); PARTIAL THROMBO TIME 30.5 SEC (22.5-37.2); PROTIME (NOT ORD) 13.7 SEC (12.0-14.5)
[2016-11-20 21:40] LABS: CHLORIDE, SERUM 99 MMOL/L (96-112); CREATININE 1.06 MG/DL (0.70-1.30); GFR AFRICAN AMERICAN 90 ML/MIN (>=60); GFR NON AFRICAN AMERICAN 78 ML/MIN (>=60); GLUCOSE, SERUM 150 MG/DL (60-99); POTASSIUM, SERUM 3.7 MMOL/L (3.5-5.3); SODIUM, SERUM 138 MMOL/L (135-148)
[2016-11-20 21:41] LABS: BUN (BLOOD UREA NITROGEN) 19 MG/DL (6-23); CO2 (CARBON DIOXIDE) 27 MMOL/L (24-34)
[2016-11-20] MEDS ORDERED: ISOSORBIDE PO (21:44)
[2016-11-20 21:45] LABS: CHEST PAIN PROFILE TAT 0 Hrs 26 Mins; TROPONIN I 0.52 NG/ML (<0.05)
[2016-11-20] MEDS ORDERED: [UNRECOGNIZED DRUG - OTHER] PO (21:45)
[2016-11-20] MEDS ORDERED: PLAVIX PO (21:45)
[2016-11-20] MEDS ORDERED: SIMVASTATIN PO (21:46)
[2016-11-20] MEDS ORDERED: LOPID6 PO (21:46)
[2016-11-20] MEDS ORDERED: [UNRECOGNIZED DRUG - OTHER] PO (21:46)
[2016-11-20] MEDS ORDERED: CHOLESTEROL RX (21:47)
[2016-11-20] MEDS ORDERED: ASA5GR PO (21:47)
[2016-11-20] MEDS ORDERED: BLOOD PRESSURE MEDS (21:48)
[2016-11-20] MEDS ORDERED: HCTZ PO (21:48)
[2016-11-20] MEDS ORDERED: NITROSTAT0.4 MG SL (21:49)
[2016-11-20] MEDS ORDERED: *UNABLE1 (21:50)
[2016-11-21 06:14] LABS: BASOPHILS 0.2 %; BASOPHILS ABSOLUTE 0.03 10/3/uL (0.0-0.16); EOSINOPHILS 2.5 %; EOSINOPHILS ABSOLUTE 0.39 10/3/uL (0.0-0.53); HEMATOCRIT 44.9 % (40.0-51.0); HEMOGLOBIN 15.5 g/dL (13.6-17.8); IMMATURE GRANULOCYTES 0.6 %; IMMATURE GRANULOCYTES ABSOLUTE 0.09 10/3/uL (0.0-0.11); LYMPHOCYTES ABSOLUTE 4.97 10/3/uL (0.67-4.30); MEAN CORPUS HGB CONC 34.5 g/dL (32.0-36.0); MEAN CORPUSCULAR HEMOGLOB 30.6 pg (26.0-34.0); MEAN CORPUSCULAR VOLUME 88.6 fL (80-100); MEAN PLATELET VOLUME 10.6 fL (9.2-13.0); MONOCYTES 7.7 %; MONOCYTES ABSOLUTE 1.19 10/3/uL (0.21-1.20); NEUTROPHILS ABSOLUTE 8.87 10/3/uL (2.02-8.40); PLATELET COUNT 248 10/3/uL (150-400); RBC DISTRIBUTION WIDTH 12.9 % (12.0-16.0); RED CELL COUNT 5.07 10/6/uL (4.7-6.1); WHITE BLOOD CELLS 15.5 10/3/uL (4.5-10.5)
[2016-11-21 06:15] LABS: MANUAL DIFF NO %
[2016-11-21 06:32] LABS: CHOL/HDL RATIO(NOT ORDER) 5.9 (0-5); TROPONIN I 0.93 NG/ML (<0.05)
[2016-11-21] MEDS ORDERED: AMARYL4 PO (13:21)
[2016-11-21] MEDS ORDERED: GLUCOPHAGE1000 MG PO (13:21)
[2016-11-21] MEDS ORDERED: MONOKET PO (13:21)
[2016-11-21] MEDS ORDERED: NEUR300 PO (13:22)
[2016-11-21] MEDS ORDERED: ZOCOR20 PO (13:22)
[2016-11-21] MEDS ORDERED: HYDROCHLOROT25 MG PO (13:22)
[2016-11-21] MEDS ORDERED: ZESTRIL20 MG PO (13:23)
[2016-11-21] MEDS ORDERED: LOP50 PO (13:23)
[2016-11-22 06:00] LABS: BASOPHILS 0.2 %; BASOPHILS ABSOLUTE 0.02 10/3/uL (0.0-0.16); CALCIUM, SERUM 8.2 MG/DL (8.5-10.4); CHLORIDE, SERUM 102 MMOL/L (96-112); CHOL/HDL RATIO(NOT ORDER) 5.5 (0-5); CHOLESTEROL 115 MG/DL (< 200); CO2 (CARBON DIOXIDE) 25 MMOL/L (24-34); CREATININE 0.99 MG/DL (0.70-1.30); EOSINOPHILS 3.2 %; EOSINOPHILS ABSOLUTE 0.36 10/3/uL (0.0-0.53); GFR AFRICAN AMERICAN 98 ML/MIN (>=60); GFR NON AFRICAN AMERICAN 84 ML/MIN (>=60); GLUCOSE, SERUM 144 MG/DL (60-99); HDL CHOLESTEROL 21 MG/DL (> 39); HEMOGLOBIN 13.7 g/dL (13.6-17.8); IMMATURE GRANULOCYTES 0.7 %; IMMATURE GRANULOCYTES ABSOLUTE 0.08 10/3/uL (0.0-0.11); LDL CHOLESTEROL 15 MG/DL (< 130); LYMPHOCYTES ABSOLUTE 3.85 10/3/uL (0.67-4.30); MEAN CORPUS HGB CONC 34.3 g/dL (32.0-36.0); MEAN CORPUSCULAR HEMOGLOB 30.4 pg (26.0-34.0); MEAN CORPUSCULAR VOLUME 88.7 fL (80-100); MEAN PLATELET VOLUME 10.9 fL (9.2-13.0); MONOCYTES 8.4 %; MONOCYTES ABSOLUTE 0.95 10/3/uL (0.21-1.20); NEUTROPHILS 53.5 %; NEUTROPHILS ABSOLUTE 6.08 10/3/uL (2.02-8.40); NON-HDL CHOLESTEROL 94 MG/DL (< 160); PLATELET COUNT 219 10/3/uL (150-400); POTASSIUM, SERUM 3.6 MMOL/L (3.5-5.3); RBC DISTRIBUTION WIDTH 12.9 % (12.0-16.0); SODIUM, SERUM 139 MMOL/L (135-148); TRIGLYCERIDE 395 MG/DL (< 150); WHITE BLOOD CELLS 11.3 10/3/uL (4.5-10.5)
[2016-11-22 06:02] LABS: BUN (BLOOD UREA NITROGEN) 14 MG/DL (6-23)
[2016-11-22 06:14] LABS: HEMATOCRIT 39.9 % (40.0-51.0); MANUAL DIFF NO %
[2016-11-24 10:54] LABS: BASOPHILS 0.1 %; BASOPHILS ABSOLUTE 0.02 10/3/uL (0.0-0.16); EOSINOPHILS 2.9 %; EOSINOPHILS ABSOLUTE 0.46 10/3/uL (0.0-0.53); HEMATOCRIT 41.2 % (40.0-51.0); IMMATURE GRANULOCYTES 0.6 %; IMMATURE GRANULOCYTES ABSOLUTE 0.09 10/3/uL (0.0-0.11); LYMPHOCYTES 22.2 %; LYMPHOCYTES ABSOLUTE 3.51 10/3/uL (0.67-4.30); MANUAL DIFF NO %; MEAN CORPUSCULAR HEMOGLOB 29.7 pg (26.0-34.0); MEAN CORPUSCULAR VOLUME 87.5 fL (80-100); MEAN PLATELET VOLUME 10.5 fL (9.2-13.0); MONOCYTES 5.4 %; MONOCYTES ABSOLUTE 0.86 10/3/uL (0.21-1.20); NEUTROPHILS 68.8 %; NEUTROPHILS ABSOLUTE 10.86 10/3/uL (2.02-8.40); PLATELET COUNT 217 10/3/uL (150-400); RBC DISTRIBUTION WIDTH 12.9 % (12.0-16.0); RED CELL COUNT 4.71 10/6/uL (4.7-6.1); WHITE BLOOD CELLS 15.8 10/3/uL (4.5-10.5)
[2016-11-24 11:21] LABS: BUN (BLOOD UREA NITROGEN) 11 MG/DL (6-23); CALCIUM, SERUM 9.1 MG/DL (8.5-10.4); CHLORIDE, SERUM 103 MMOL/L (96-112); CO2 (CARBON DIOXIDE) 25 MMOL/L (24-34); CREATININE 0.97 MG/DL (0.70-1.30); GFR AFRICAN AMERICAN 100 ML/MIN (>=60); GFR NON AFRICAN AMERICAN 86 ML/MIN (>=60); GLUCOSE, SERUM 179 MG/DL (60-99); POTASSIUM, SERUM 4.5 MMOL/L (3.5-5.3); SODIUM, SERUM 136 MMOL/L (135-148); TROPONIN I 0.58 NG/ML (<0.05)
[2016-11-25 04:19] LABS: BASOPHILS 0.3 %; BASOPHILS ABSOLUTE 0.04 10/3/uL (0.0-0.16); EOSINOPHILS 3.9 %; EOSINOPHILS ABSOLUTE 0.47 10/3/uL (0.0-0.53); HEMATOCRIT 40.1 % (40.0-51.0); IMMATURE GRANULOCYTES 0.7 %; IMMATURE GRANULOCYTES ABSOLUTE 0.08 10/3/uL (0.0-0.11); LYMPHOCYTES 28.7 %; LYMPHOCYTES ABSOLUTE 3.45 10/3/uL (0.67-4.30); MEAN CORPUS HGB CONC 34.9 g/dL (32.0-36.0); MEAN CORPUSCULAR VOLUME 88.7 fL (80-100); MEAN PLATELET VOLUME 11.1 fL (9.2-13.0); MONOCYTES 7.2 %; MONOCYTES ABSOLUTE 0.87 10/3/uL (0.21-1.20); NEUTROPHILS 59.2 %; NEUTROPHILS ABSOLUTE 7.12 10/3/uL (2.02-8.40); PLATELET COUNT 209 10/3/uL (150-400); RED CELL COUNT 4.52 10/6/uL (4.7-6.1)
[2016-11-25 04:21] LABS: MANUAL DIFF NO %
[2016-11-25 04:27] LABS: BUN (BLOOD UREA NITROGEN) 11 MG/DL (6-23); CALCIUM, SERUM 8.8 MG/DL (8.5-10.4); CHLORIDE, SERUM 101 MMOL/L (96-112); CO2 (CARBON DIOXIDE) 27 MMOL/L (24-34); CREATININE 1.08 MG/DL (0.70-1.30); GFR AFRICAN AMERICAN 88 ML/MIN (>=60); GFR NON AFRICAN AMERICAN 76 ML/MIN (>=60); GLUCOSE, SERUM 214 MG/DL (60-99); POTASSIUM, SERUM 4.1 MMOL/L (3.5-5.3); SODIUM, SERUM 136 MMOL/L (135-148)
[2016-11-25 17:23] LABS: ASCORBIC ACID (UR NOT ORDER) NEG (NEG); BILIRUBIN, URINE NEGATIVE (NEG); KETONE, URINE NEGATIVE (NEG); LEUKOCYTE ESTERASE(NOT OR NEG (NEG); WBC (NOT ORDERED) (RFLEX) < 1 (0-5)
[2016-11-26 05:26] LABS: BASOPHILS 0.2 %; BASOPHILS ABSOLUTE 0.03 10/3/uL (0.0-0.16); EOSINOPHILS 3.7 %; EOSINOPHILS ABSOLUTE 0.51 10/3/uL (0.0-0.53); HEMATOCRIT 42.5 % (40.0-51.0); HEMOGLOBIN 14.5 g/dL (13.6-17.8); IMMATURE GRANULOCYTES 0.9 %; IMMATURE GRANULOCYTES ABSOLUTE 0.12 10/3/uL (0.0-0.11); LYMPHOCYTES 26.2 %; LYMPHOCYTES ABSOLUTE 3.62 10/3/uL (0.67-4.30); MEAN CORPUS HGB CONC 34.1 g/dL (32.0-36.0); MEAN CORPUSCULAR HEMOGLOB 30.3 pg (26.0-34.0); MEAN CORPUSCULAR VOLUME 88.9 fL (80-100); MEAN PLATELET VOLUME 10.5 fL (9.2-13.0); MONOCYTES 9.9 %; MONOCYTES ABSOLUTE 1.36 10/3/uL (0.21-1.20); NEUTROPHILS 59.1 %; NEUTROPHILS ABSOLUTE 8.16 10/3/uL (2.02-8.40); PLATELET COUNT 223 10/3/uL (150-400); RBC DISTRIBUTION WIDTH 13.1 % (12.0-16.0); RED CELL COUNT 4.78 10/6/uL (4.7-6.1); WHITE BLOOD CELLS 13.8 10/3/uL (4.5-10.5)
[2016-11-26 05:29] LABS: MANUAL DIFF NO %
[2016-11-26 05:37] LABS: INTERNATIONAL NORMAL RATI 1.2 UNITS (-); PROTIME (NOT ORD) 14.6 SEC (12.0-14.5)
[2016-11-26 05:53] LABS: % IRON SAT 19 % (20-50); ALBUMIN 3.7 G/DL (3.5-5.0); ALKALINE PHOSPHATASE 67 U/L (45-117); BUN (BLOOD UREA NITROGEN) 11 MG/DL (6-23); CALCIUM, SERUM 9.5 MG/DL (8.5-10.4); CHLORIDE, SERUM 100 MMOL/L (96-112); CO2 (CARBON DIOXIDE) 27 MMOL/L (24-34); CREATININE 0.99 MG/DL (0.70-1.30); GFR AFRICAN AMERICAN 98 ML/MIN (>=60); GFR NON AFRICAN AMERICAN 84 ML/MIN (>=60); GLOBULIN 3.7 G/DL (2.5-4.1); IRON BINDING CAPACITY 340 MCG/DL (250-450); IRON, SERUM 64 MCG/DL (35-150); POTASSIUM, SERUM 3.9 MMOL/L (3.5-5.3); SGOT(AST) 22 U/L (5-40); SGPT(ALT) 47 U/L (5-65); SODIUM, SERUM 137 MMOL/L (135-148); TOTAL BILIRUBIN 0.4 MG/DL (0-1.2); TOTAL PROTEIN 7.4 G/DL (6.0-8.5)
[2016-11-26 05:59] LABS: GLUCOSE, SERUM 157 MG/DL (60-99)
[2016-11-26 07:25] LABS: TEG - ANGLE 64.2 DEG (53-72); TEG - RATE 9.4 MIN (5.0-10.0)
[2016-11-26 07:26] LABS: TEG - COAGULATION INDEX -2.2 (-3 TO 3); TEG - MAXIMUM AMPLITUDE 61.7 MM (50-70); TEG PLAVIX/EFFIENT/TICLID(ADP) 5.6 % INHIB (< 40)
[2016-11-26 07:28] LABS: MAX AMP (ADP) 59.1 MM (35-68)
[2016-11-26 15:10] LABS: BE (BASE EXCESS) -1.8 MEQ/L (0 +/- 2.5); CARBOXYHEMOGLOBIN 0.4 % (0-3); HCO3 (ACTUAL BICARBONATE) 23.7 MEQ/L (23-27); HEMOBLOGIN CONTENT 13.5 G/DL (14-18); INSTRUMENT SERIAL # 11843; METHEMOGLOBIN 0.4 % (0-3); MODE SIMV; O2 CONTENT 18.4 VOL% (18-24); OPERATOR ID 18642; PCO2 (CO2 TENSION) 43 MMHG (35-45); PO2 (O2 TENSION) 111 MMHG (79-93); PRESSURE SUPPORT 5 cm.H2O; SAMPLE Arterial; TIDAL VOLUME 700 ML; pH 7.36 (7.37-7.43)
[2016-11-26 15:56] LABS: HEMATOCRIT 37.2 % (40.0-51.0); HEMOGLOBIN 12.7 g/dL (13.6-17.8); PLATELET COUNT 149 10/3/uL (150-400)
[2016-11-26 16:03] LABS: INTERNATIONAL NORMAL RATI 1.4 UNITS (-); PARTIAL THROMBO TIME 34.1 SEC (22.5-37.2); PROTIME (NOT ORD) 16.7 SEC (12.0-14.5)
[2016-11-26 16:09] LABS: BUN (BLOOD UREA NITROGEN) 12 MG/DL (6-23); CALCIUM, SERUM 9.7 MG/DL (8.5-10.4); CHLORIDE, SERUM 107 MMOL/L (96-112); CO2 (CARBON DIOXIDE) 28 MMOL/L (24-34); CREATININE 1.32 MG/DL (0.70-1.30); GFR AFRICAN AMERICAN 69 ML/MIN (>=60); GFR NON AFRICAN AMERICAN 59 ML/MIN (>=60); GLUCOSE, SERUM 96 MG/DL (60-99); POTASSIUM, SERUM 4.1 MMOL/L (3.5-5.3); SODIUM, SERUM 144 MMOL/L (135-148)
[2016-11-26 18:57] LABS: BE (BASE EXCESS) -1.6 MEQ/L (0 +/- 2.5); CARBOXYHEMOGLOBIN 0.7 % (0-3); DEVICE NC; HCO3 (ACTUAL BICARBONATE) 24.3 MEQ/L (23-27); HEMOBLOGIN CONTENT 14.6 G/DL (14-18); INSTRUMENT SERIAL # 11843; METHEMOGLOBIN 0.3 % (0-3); O2 CONTENT 19.3 VOL% (18-24); PCO2 (CO2 TENSION) 45 MMHG (35-45); PO2 (O2 TENSION) 83 MMHG (79-93); SAMPLE Arterial; pH 7.35 (7.37-7.43)
[2016-11-26 23:00] LABS: HEMATOCRIT 37.6 % (40.0-51.0)
[2016-11-26 23:15] LABS: BUN (BLOOD UREA NITROGEN) 13 MG/DL (6-23); CHLORIDE, SERUM 108 MMOL/L (96-112); CO2 (CARBON DIOXIDE) 24 MMOL/L (24-34); CREATININE 1.25 MG/DL (0.70-1.30); GFR AFRICAN AMERICAN 74 ML/MIN (>=60); GFR NON AFRICAN AMERICAN 64 ML/MIN (>=60); POTASSIUM, SERUM 4.3 MMOL/L (3.5-5.3); SODIUM, SERUM 141 MMOL/L (135-148)
[2016-11-26 23:16] LABS: GLUCOSE, SERUM 139 MG/DL (60-99)
[2016-11-26 23:17] LABS: CALCIUM, SERUM 8.6 MG/DL (8.5-10.4)
[2016-11-27 03:22] LABS: MEAN CORPUS HGB CONC 34.2 g/dL (32.0-36.0); MEAN CORPUSCULAR HEMOGLOB 30.7 pg (26.0-34.0); MEAN CORPUSCULAR VOLUME 89.8 fL (80-100); MEAN PLATELET VOLUME 10.5 fL (9.2-13.0); PLATELET COUNT 146 10/3/uL (150-400); RBC DISTRIBUTION WIDTH 13.3 % (12.0-16.0); RED CELL COUNT 4.23 10/6/uL (4.7-6.1)
[2016-11-27 03:28] LABS: MANUAL DIFF YES %; WHITE BLOOD CELLS 26.9 10/3/uL (4.5-10.5)
[2016-11-27 03:35] LABS: BUN (BLOOD UREA NITROGEN) 15 MG/DL (6-23); CALCIUM, SERUM 8.5 MG/DL (8.5-10.4); CHLORIDE, SERUM 110 MMOL/L (96-112); CO2 (CARBON DIOXIDE) 26 MMOL/L (24-34); CREATININE 1.16 MG/DL (0.70-1.30); GFR AFRICAN AMERICAN 81 ML/MIN (>=60); GFR NON AFRICAN AMERICAN 70 ML/MIN (>=60); POTASSIUM, SERUM 4.4 MMOL/L (3.5-5.3); SODIUM, SERUM 144 MMOL/L (135-148)
[2016-11-27 03:40] LABS: GLUCOSE, SERUM 89 MG/DL (60-99)
[2016-11-27 03:47] LABS: BAND NEUTROPHILS 2 %; IMMATURE GRANS ABSOLUTE (CALC) 0.27 10/3/uL (0.0-0.11); LYMPHOCYTES 7 %; LYMPHOCYTES ABSOLUTE (CALC) 1.88 10/3/uL (0.67-4.30); METAMYELOCYTES 1 %; MONOCYTES 5 %; MONOCYTES ABSOLUTE (CALC) 1.35 10/3/uL (0.21-1.20); PLATELET ESTIMATE SLT DEC (ADEQUATE); RBC MORPHOLOGY NORM (NORMAL); SEGMENTED NEUTROPHIL (0) 85 %; TOTAL NUCLEATED CELLS 100
[2016-11-27 16:06] LABS: HEMATOCRIT 36.9 % (40.0-51.0); HEMOGLOBIN 12.6 g/dL (13.6-17.8); PLATELET COUNT 162 10/3/uL (150-400)
[2016-11-27 16:25] LABS: POTASSIUM, SERUM 4.5 MMOL/L (3.5-5.3)
[2016-11-28 03:49] LABS: BASOPHILS 0.1 %; BASOPHILS ABSOLUTE 0.02 10/3/uL (0.0-0.16); EOSINOPHILS 0.1 %; EOSINOPHILS ABSOLUTE 0.02 10/3/uL (0.0-0.53); HEMATOCRIT 35.8 % (40.0-51.0); HEMOGLOBIN 12.2 g/dL (13.6-17.8); IMMATURE GRANULOCYTES 0.5 %; IMMATURE GRANULOCYTES ABSOLUTE 0.13 10/3/uL (0.0-0.11); LYMPHOCYTES 12.1 %; LYMPHOCYTES ABSOLUTE 3.15 10/3/uL (0.67-4.30); MEAN CORPUS HGB CONC 34.1 g/dL (32.0-36.0); MEAN CORPUSCULAR HEMOGLOB 30.9 pg (26.0-34.0); MEAN CORPUSCULAR VOLUME 90.6 fL (80-100); MEAN PLATELET VOLUME 10.7 fL (9.2-13.0); MONOCYTES 14.3 %; MONOCYTES ABSOLUTE 3.74 10/3/uL (0.21-1.20); NEUTROPHILS 72.9 %; NEUTROPHILS ABSOLUTE 19.01 10/3/uL (2.02-8.40); PLATELET COUNT 169 10/3/uL (150-400); RBC DISTRIBUTION WIDTH 13.8 % (12.0-16.0); RED CELL COUNT 3.95 10/6/uL (4.7-6.1)
[2016-11-28 03:51] LABS: MANUAL DIFF NO %; WHITE BLOOD CELLS 26.1 10/3/uL (4.5-10.5)
[2016-11-28 04:11] LABS: CALCIUM, SERUM 8.5 MG/DL (8.5-10.4); CO2 (CARBON DIOXIDE) 28 MMOL/L (24-34); GFR AFRICAN AMERICAN 86 ML/MIN (>=60); GFR NON AFRICAN AMERICAN 74 ML/MIN (>=60); POTASSIUM, SERUM 3.8 MMOL/L (3.5-5.3); SODIUM, SERUM 138 MMOL/L (135-148)
[2016-11-28 04:15] LABS: BUN (BLOOD UREA NITROGEN) 19 MG/DL (6-23); CHLORIDE, SERUM 100 MMOL/L (96-112)
[2016-11-28 04:16] LABS: GLUCOSE, SERUM 107 MG/DL (60-99)
[2016-11-28 18:06] LABS: POTASSIUM, SERUM 3.6 MMOL/L (3.5-5.3)
[2016-11-29 05:35] LABS: BASOPHILS 0 %; BASOPHILS ABSOLUTE 0.01 10/3/uL (0.0-0.16); EOSINOPHILS 0.2 %; EOSINOPHILS ABSOLUTE 0.05 10/3/uL (0.0-0.53); HEMATOCRIT 37.8 % (40.0-51.0); HEMOGLOBIN 12.7 g/dL (13.6-17.8); IMMATURE GRANULOCYTES 0.4 %; IMMATURE GRANULOCYTES ABSOLUTE 0.09 10/3/uL (0.0-0.11); LYMPHOCYTES 7.1 %; LYMPHOCYTES ABSOLUTE 1.42 10/3/uL (0.67-4.30); MEAN CORPUS HGB CONC 33.6 g/dL (32.0-36.0); MEAN CORPUSCULAR HEMOGLOB 29.5 pg (26.0-34.0); MEAN CORPUSCULAR VOLUME 87.9 fL (80-100); MEAN PLATELET VOLUME 10.7 fL (9.2-13.0); MONOCYTES 11.7 %; MONOCYTES ABSOLUTE 2.36 10/3/uL (0.21-1.20); NEUTROPHILS 80.6 %; NEUTROPHILS ABSOLUTE 16.17 10/3/uL (2.02-8.40); PLATELET COUNT 170 10/3/uL (150-400); RBC DISTRIBUTION WIDTH 13.9 % (12.0-16.0); WHITE BLOOD CELLS 20.1 10/3/uL (4.5-10.5)
[2016-11-29 05:40] LABS: MANUAL DIFF NO %
[2016-11-29 06:02] LABS: BUN (BLOOD UREA NITROGEN) 29 MG/DL (6-23); CALCIUM, SERUM 9.1 MG/DL (8.5-10.4); CHLORIDE, SERUM 95 MMOL/L (96-112); CO2 (CARBON DIOXIDE) 30 MMOL/L (24-34); GFR AFRICAN AMERICAN 59 ML/MIN (>=60); GFR NON AFRICAN AMERICAN 51 ML/MIN (>=60); GLUCOSE, SERUM 127 MG/DL (60-99); POTASSIUM, SERUM 4.1 MMOL/L (3.5-5.3); SODIUM, SERUM 135 MMOL/L (135-148)
[2016-11-30 05:01] LABS: BASOPHILS 0.1 %; BASOPHILS ABSOLUTE 0.02 10/3/uL (0.0-0.16); EOSINOPHILS 1.9 %; EOSINOPHILS ABSOLUTE 0.33 10/3/uL (0.0-0.53); HEMATOCRIT 37.4 % (40.0-51.0); HEMOGLOBIN 12.6 g/dL (13.6-17.8); IMMATURE GRANULOCYTES 0.8 %; IMMATURE GRANULOCYTES ABSOLUTE 0.15 10/3/uL (0.0-0.11); LYMPHOCYTES 16.8 %; LYMPHOCYTES ABSOLUTE 2.99 10/3/uL (0.67-4.30); MANUAL DIFF NO %; MEAN CORPUS HGB CONC 33.7 g/dL (32.0-36.0); MEAN CORPUSCULAR HEMOGLOB 30.7 pg (26.0-34.0); MEAN PLATELET VOLUME 10.6 fL (9.2-13.0); MONOCYTES 15.7 %; MONOCYTES ABSOLUTE 2.79 10/3/uL (0.21-1.20); NEUTROPHILS 64.7 %; PLATELET COUNT 221 10/3/uL (150-400); RBC DISTRIBUTION WIDTH 13.5 % (12.0-16.0); RED CELL COUNT 4.11 10/6/uL (4.7-6.1); WHITE BLOOD CELLS 17.8 10/3/uL (4.5-10.5)
[2016-11-30 05:07] LABS: BUN (BLOOD UREA NITROGEN) 28 MG/DL (6-23); CALCIUM, SERUM 8.7 MG/DL (8.5-10.4); CHLORIDE, SERUM 95 MMOL/L (96-112); CO2 (CARBON DIOXIDE) 30 MMOL/L (24-34); CREATININE 1.19 MG/DL (0.70-1.30); GFR AFRICAN AMERICAN 78 ML/MIN (>=60); GFR NON AFRICAN AMERICAN 67 ML/MIN (>=60); GLUCOSE, SERUM 139 MG/DL (60-99); POTASSIUM, SERUM 3.9 MMOL/L (3.5-5.3); SODIUM, SERUM 136 MMOL/L (135-148)
[2016-12-01 06:25] LABS: BASOPHILS 0.2 %; BASOPHILS ABSOLUTE 0.03 10/3/uL (0.0-0.16); EOSINOPHILS 2.3 %; EOSINOPHILS ABSOLUTE 0.36 10/3/uL (0.0-0.53); HEMATOCRIT 34.3 % (40.0-51.0); HEMOGLOBIN 11.5 g/dL (13.6-17.8); IMMATURE GRANULOCYTES 0.9 %; IMMATURE GRANULOCYTES ABSOLUTE 0.15 10/3/uL (0.0-0.11); LYMPHOCYTES 13.4 %; LYMPHOCYTES ABSOLUTE 2.14 10/3/uL (0.67-4.30); MEAN CORPUS HGB CONC 33.5 g/dL (32.0-36.0); MEAN CORPUSCULAR HEMOGLOB 30.4 pg (26.0-34.0); MEAN CORPUSCULAR VOLUME 90.7 fL (80-100); MEAN PLATELET VOLUME 10.5 fL (9.2-13.0); MONOCYTES 13.5 %; MONOCYTES ABSOLUTE 2.15 10/3/uL (0.21-1.20); NEUTROPHILS 69.7 %; NEUTROPHILS ABSOLUTE 11.13 10/3/uL (2.02-8.40); PLATELET COUNT 245 10/3/uL (150-400); RBC DISTRIBUTION WIDTH 13.4 % (12.0-16.0); RED CELL COUNT 3.78 10/6/uL (4.7-6.1)
[2016-12-01 06:26] LABS: MANUAL DIFF NO %
[2016-12-01 06:35] LABS: CALCIUM, SERUM 8.6 MG/DL (8.5-10.4); CHLORIDE, SERUM 96 MMOL/L (96-112); CO2 (CARBON DIOXIDE) 30 MMOL/L (24-34); CREATININE 1.04 MG/DL (0.70-1.30); GFR AFRICAN AMERICAN 92 ML/MIN (>=60); GFR NON AFRICAN AMERICAN 79 ML/MIN (>=60); GLUCOSE, SERUM 120 MG/DL (60-99); POTASSIUM, SERUM 3.9 MMOL/L (3.5-5.3); SODIUM, SERUM 136 MMOL/L (135-148)
[2016-12-01 06:36] LABS: BUN (BLOOD UREA NITROGEN) 23 MG/DL (6-23)
[2016-12-02 05:43] LABS: BASOPHILS 0.3 %; BASOPHILS ABSOLUTE 0.05 10/3/uL (0.0-0.16); EOSINOPHILS 2.6 %; EOSINOPHILS ABSOLUTE 0.43 10/3/uL (0.0-0.53); HEMATOCRIT 33.3 % (40.0-51.0); HEMOGLOBIN 11.3 g/dL (13.6-17.8); IMMATURE GRANULOCYTES 2.1 %; IMMATURE GRANULOCYTES ABSOLUTE 0.35 10/3/uL (0.0-0.11); LYMPHOCYTES 17.8 %; MEAN CORPUS HGB CONC 33.9 g/dL (32.0-36.0); MEAN CORPUSCULAR HEMOGLOB 30.8 pg (26.0-34.0); MEAN CORPUSCULAR VOLUME 90.7 fL (80-100); MEAN PLATELET VOLUME 10.1 fL (9.2-13.0); MONOCYTES 11.2 %; MONOCYTES ABSOLUTE 1.83 10/3/uL (0.21-1.20); NEUTROPHILS ABSOLUTE 10.74 10/3/uL (2.02-8.40); PLATELET COUNT 301 10/3/uL (150-400); RBC DISTRIBUTION WIDTH 13.3 % (12.0-16.0); RED CELL COUNT 3.67 10/6/uL (4.7-6.1); WHITE BLOOD CELLS 16.3 10/3/uL (4.5-10.5)
[2016-12-02 05:45] LABS: MANUAL DIFF NO %
[2016-12-03 06:03] LABS: HEMATOCRIT 33.2 % (40.0-51.0); HEMOGLOBIN 11.6 g/dL (13.6-17.8); MEAN CORPUS HGB CONC 34.9 g/dL (32.0-36.0); MEAN CORPUSCULAR HEMOGLOB 31.8 pg (26.0-34.0); MEAN PLATELET VOLUME 9.9 fL (9.2-13.0); PLATELET COUNT 330 10/3/uL (150-400); RBC DISTRIBUTION WIDTH 13.2 % (12.0-16.0); RED CELL COUNT 3.65 10/6/uL (4.7-6.1); WHITE BLOOD CELLS 14.3 10/3/uL (4.5-10.5)
[2016-12-03 06:05] LABS: MANUAL DIFF YES %
[2016-12-03 06:11] LABS: INTERNATIONAL NORMAL RATI 1.3 UNITS (-); PROTIME (NOT ORD) 15.9 SEC (12.0-14.5)
[2016-12-03 06:12] LABS: PARTIAL THROMBO TIME 33.6 SEC (22.5-37.2)
[2016-12-03 06:58] LABS: BAND NEUTROPHILS 7 %; EOSINOPHILS 3 %; EOSINOPHILS ABSOLUTE (CALC) 0.43 10/3/uL (0.0-0.53); IMMATURE GRANS ABSOLUTE (CALC) 0.14 10/3/uL (0.0-0.11); LYMPHOCYTES 16 %; LYMPHOCYTES ABSOLUTE (CALC) 2.29 10/3/uL (0.67-4.30); METAMYELOCYTES 1 %; MONOCYTES 10 %; MONOCYTES ABSOLUTE (CALC) 1.43 10/3/uL (0.21-1.20); NEUTROPHILS ABSOLUTE (CALC) 10.01 10/3/uL (2.02-8.40); PLATELET ESTIMATE ADQ (ADEQUATE); RBC MORPHOLOGY NORM (NORMAL); SEGMENTED NEUTROPHIL (0) 63 %; TOTAL NUCLEATED CELLS 100; TOXIC GRANULATION 1+
[2016-12-03] MEDS ORDERED: ASAB PO (16:00)
[2016-12-03] MEDS ORDERED: LOP50 PO (16:02)
[2016-12-03] MEDS ORDERED: LIPITOR40 (16:03)
[2016-12-03] MEDS ORDERED: LIPITOR40 PO (16:04)
[2016-12-03] MEDS ORDERED: ANOROELLIPTA INH (16:05)
[2016-12-03] MEDS ORDERED: LEVAQUIN750 MG PO (16:05)
[2016-12-03] MEDS ORDERED: FLAG500TAB PO (16:06)
[2016-12-03] MEDS ORDERED: ULTRAM50 PO (16:06)
[2016-12-03] MEDS ORDERED: INSNOV7030 SC ×2 (16:07)
== END 2016-12-03 16:48 | disposition home or self-care (01) | DRG 234 ==
LOC: ER 20:10 → 2SO 23:02 → SDC/OF 11-21 14:15 → SSU1 11-21 15:05 → 5NO 11-22 14:29 → SSU1 11-23 09:38 → CCU 11-24 09:18 → SDC/OF 11-26 10:43 → CVICU 11-26 14:19 → 5NO 11-28 17:38
PROVIDERS: Internal Medicine; Internal Medicine Cardiovascular Disease; Internal Medicine Gastroenterology; Nurse Practitioner Family; Specialist; Thoracic Surgery (Cardiothoracic Vascular Surgery)
PROC: 4A023N7 Measurement of Cardiac Sampling and Pressure, Left Heart, Percutaneous Approach (ICD-10-PCS; principal; 2016-11-21)
PROC: B2111ZZ Fluoroscopy of Multiple Coronary Arteries using Low Osmolar Contrast (ICD-10-PCS; 2016-11-21)
PROC: 021209W Bypass Coronary Artery, Three Arteries from Aorta with Autologous Venous Tissue, Open Approach (ICD-10-PCS; 2016-11-21)
PROC: 06BP4ZZ Excision of Right Saphenous Vein, Percutaneous Endoscopic Approach (ICD-10-PCS; 2016-11-21)
PROC: B2151ZZ Fluoroscopy of Left Heart using Low Osmolar Contrast (ICD-10-PCS; 2016-11-21)
PROC: B2131ZZ Fluoroscopy of Multiple Coronary Artery Bypass Grafts using Low Osmolar Contrast (ICD-10-PCS; 2016-11-21)
PROC: B2181ZZ Fluoroscopy of Left Internal Mammary Bypass Graft using Low Osmolar Contrast (ICD-10-PCS; 2016-11-21)
PROC: 5A1221Z Performance of Cardiac Output, Continuous (ICD-10-PCS; 2016-11-26)
PROC: B246ZZ4 Ultrasonography of Right and Left Heart, Transesophageal (ICD-10-PCS; 2016-11-26)
PROC: 0DBK8ZX Excision of Ascending Colon, Via Natural or Artificial Opening Endoscopic, Diagnostic (ICD-10-PCS; 2016-12-03)
PROC: 0DBN8ZX Excision of Sigmoid Colon, Via Natural or Artificial Opening Endoscopic, Diagnostic (ICD-10-PCS; 2016-12-03)
DX: I21.4 Non-ST elevation (NSTEMI) myocardial infarction (principal); K63.3 Ulcer of intestine; I25.810 Atherosclerosis of coronary artery bypass graft(s) without angina pectoris; J44.9 Chronic obstructive pulmonary disease, unspecified; E11.65 Type 2 diabetes mellitus with hyperglycemia; A09 Infectious gastroenteritis and colitis, unspecified; Z95.1 Presence of aortocoronary bypass graft; I25.2 Old myocardial infarction; Z95.5 Presence of coronary angioplasty implant and graft; Z79.4 Long term (current) use of insulin; K21.9 Gastro-esophageal reflux disease without esophagitis; G47.33 Obstructive sleep apnea (adult) (pediatric); Z82.49 Family history of ischemic heart disease and other diseases of the circulatory system; F17.210 Nicotine dependence, cigarettes, uncomplicated; L40.9 Psoriasis, unspecified; I10 Essential (primary) hypertension; Z79.899 Other long term (current) drug therapy; Z79.84 Long term (current) use of oral hypoglycemic drugs; Z79.82 Long term (current) use of aspirin; Z83.3 Family history of diabetes mellitus; E66.9 Obesity, unspecified; Z68.27 Body mass index [BMI] 27.0-27.9, adult; K64.8 Other hemorrhoids
CPT/HCPCS: 36415; 71010; 71020; 71250; 74177; 80048; 80053; 80061; 81001; 82330; 82803; 82805; 82947; 82962; 83036; 83540; 83550; 83735; 84132; 84295; 84460; 84484; 85014; 85018; 85025; 85049; 85347; 85384; 85576; 85576-59; 85610; 85730; 86850; 86900; 86901; 86920; 87045; 87046; 87046-59; 87328; 87329; 87493; 87493-59; 87641; 87899; 87899-59; 88305; 89055; 93005; 93312; 93320; 93325; 93459; 93880; 93975; 94002; 94010; 94640; 94667; 94668; 94770; 96374; 99152; 99153; 99285; A9270-GY; C1760; C1769; C1894; C8929; G0365; J0690; J1644; J1885; J1940; J2150; J2250; J2370; J2405; J2440; J2543; J2550; J2720; J2795; J2930; J3010; J3475; J3480; P9045; P9047; Q9957; Q9967